=== PATIENT | female | born 1955 | race Caucasian/White ===

== ENCOUNTER 2016-07-28 15:44 | Emergency (ER) | payer MEDICARE ==
[2016-07-28 18:33] LABS: BILIRUBIN NEGATIVE (NEGATIVE); BLOOD NEGATIVE Ery/uL (NEGATIVE); CLARITY CLEAR (CLEAR); COLOR YELLOW (YELLOW); GLUCOSE (U) NORMAL (NORMAL); KETONE (U) NEGATIVE (NEGATIVE); LEUKOCYTES NEGATIVE Leu/uL (NEGATIVE); NITRITE NEGATIVE (NEGATIVE); PROTEIN NEGATIVE (NEGATIVE); SPECIFIC GRAVITY 1.025 (1.001-1.030); UROBILINOGEN 0.2 mg/dL (0.2-1.0)
[2016-07-28 18:41] LABS: AMPHETAMINES NEGATIVE (NEGATIVE); BARBITURATES NEGATIVE (NEGATIVE); COCAINE NEGATIVE (NEGATIVE); MARIJUANA (THC) NEGATIVE (NEGATIVE); METHADONE NEGATIVE (NEGATIVE)
[2016-07-28 18:42] LABS: BENZODIAZEPINES POSITIVE (NEGATIVE); TRICYCLIC ANTIDEPRESSANT POSITIVE (NEGATIVE)
[2016-07-28 18:58] LABS: ALBUMIN 3.9 g/dL (3.5-5.0); BASOPHIL 0.5 % (0-2); BILIRUBIN - TOTAL 0.2 mg/dL (0.1-1.0); CREATININE 0.8 mg/dL (0.5-1.0); GLOBULIN (CALCULATION) 2.8 g/dL (2.2-4.2); HCT 32.4 % (37.0-47.0); HGB 11.1 g/dl (12.5-16.0); LYMPHOCYTE 31.5 % (15-48); MCH 29.4 pg (25.0-31.0); MCHC 34.3 g/dL (32.0-36.0); MCV 85.9 fL (78.0-100.0); MPV 9.9 fL (6.0-9.5); PLT 209 K/uL (150-400); POTASSIUM 4.1 mmol/L (3.5-5.1); RBC 3.77 M/uL (4.20-5.40); RDW 13.7 % (11.5-14.0); TOTAL PROTEIN 6.7 g/dL (6.4-8.3); WBC 5.8 K/uL (4.0-10.5)
== END 2016-07-28 21:39 | disposition home or self-care (01) ==
LOC: FER 15:44
PROVIDERS: Nurse Practitioner
DX: K59.00 Constipation, unspecified (principal); G89.29 Other chronic pain; M54.9 Dorsalgia, unspecified; I48.91 Unspecified atrial fibrillation; G47.30 Sleep apnea, unspecified; Z90.710 Acquired absence of both cervix and uterus; Z86.73 Personal history of transient ischemic attack (TIA), and cerebral infarction without residual deficits
CPT/HCPCS: 36415; 80053; 80305; 81003; 85025; 85651; J1885; J2270; J2405; J2800; Q9967